=== PATIENT | female | born 1990 | race Caucasian/White ===

== ENCOUNTER 2016-09-21 14:36 | Emergency (ER) | payer MEDICAID, OTHER ==
[~2016-09-21] VITALS: Ht 167.6 cm; Wt 82.9 kg
[2016-09-21 14:47] VITALS: Ht 167.6 cm; Wt 82.9 kg
[2016-09-21] MEDS ORDERED: KETOROLAC 60 MG INJ IM STA (17:10)
[2016-09-21] MEDS ORDERED: KETOROLAC 30 MG INJ IV STA (17:13)
--- NOTE | 2016-09-21 19:15 | RADRPT ---
PROCEDURE: Chest x-ray CLINICAL INDICATION: Cough TECHNIQUE: Chest single view COMPARISON: None FINDINGS: The heart is normal in size. The pulmonary vessels are normal in caliber. The lungs are clear. Th e costophrenic angles are sharp. The visualized bony thorax is unremarkable. IMPRESSION: No acute cardiopulmonary disease. RPTAT: HH .Ricky Mckeon MD, Date Time Electronically viewed and signed by .Ricky Mckeon MD, MD on 09/21/2016 19:15 .W/
[2016-09-21] MEDS ORDERED: BENZ100C70 PO (21:07)
[2016-09-21] MEDS ORDERED: ACET500C5 PO (21:07)
[2016-09-21] MEDS ORDERED: IBUP-1542 PO (21:07)
[2016-09-21 21:11] VITALS: BP 121/72; PULSE 74; RESP 16
--- NOTE | 2016-09-22 00:32 | ERD ---
ER Documentation Chief Complaint Date/Time DATE: 09/22/16 TIME: 00:30 Chief Complaint PT HAS COUGH X 1 WEEK AFEBRILE SWOLLEN LEFT LYMPH NODES IN NECK HPI 25-year-old female with no significant past medical history presents to the ED complaining of a dry cough that became productive that started 1 week ago. States that she started to have a swollen lymph node that started earlier this morning on the left side of her neck region. States that she has been taking amoxicillin without relief of her symptoms. States that she has also been taking [id number] Vicks medication. Denies any chest pain, shortness of breath, wheezing, abdominal pain, nausea, vomiting, diarrhea, rashes. Reports that her son and daughter also sick with similar symptoms. ROS All systems reviewed and are negative except as per history of present illness. Medications Home Meds Active Scripts Benzonatate* (Tessalon Perle*) 100 Mg Capsule, 100 MG PO Q8H Y for COUGH, #20 CAP Prov:LIBAN BUCIO-C 09/21/16 Acetaminophen* (Tylophen*) 500 Mg Capsule, 1 CAP PO Q6H Y for PAIN AND OR ELEVATED TEMP, #20 CAP Prov:LIBAN BUCIO-C 09/21/16 Ibuprofen* (Motrin*) 600 Mg Tab, 600 MG PO Q6, #30 TAB Prov:LIBAN BUCIO-C 09/21/16 PMhx/Soc Medical and Surgical Hx: pt denies Medical Hx, pt denies Surgical Hx Hx Alcohol Use: No Hx Substance Use: No Hx Tobacco Use: No Smoking Status: Never smoker Physical Exam Vitals Vital Signs Date Time Temp Pulse Resp B/P Pulse Ox O2 Delivery O2 Flow Rate FiO2 09/21/16 21:11 74 16 121/72 98 Room Air 09/21/16 14:47 99.8 90 18 119/90 99 Physical Exam Const: [id number], well-nourished. In no acute distress. Head: Atraumatic, normocephalic Eyes: Normal Conjunctiva without injection. No purulent discharge. PERRLA. EOMI ENT: Normal external ear. Ear canal without erythema. Tympanic membrane pearly hunter without effusion or bulging. Nasal canal clear with normal turbinates. Moist oropharynx without tonsillar exudates. Non-erythematous pharynx. Uvula midline. No drooling. No trismus. Neck: No cervical midline tenderness. Full range of motion. No meningismus. Left anterior cervical lymphadenopathy. No JVD. Resp: Clear to auscultation bilaterally. No wheezing, rhonchi, rales, or crackles. No accessory muscle use. No retractions. Cardio: Regular rate and rhythm. No murmurs, rubs or gallops. Abd: Soft, non tender, non distended. Normal bowel sounds. No palpable masses. No rebound tenderness. No guarding. Negative McBurney's Point. Negative Potter's Sign. Skin: Normal skin turgor. No petechiae or rashes Back: No midline tenderness. No CVA tenderness. Ext: No cyanosis, or edema. Distal pulses intact bilaterally. Neur: Awake and alert. Normal gait. Normal coordination. Cranial Nerves II- VII intact. Normal finger to nose. Muscle strength 5/5. Sensation intact. Psych: Normal Mood and Affect Results 24 hrs Laboratory Tests Test 09/21/16 18:00 Monoscreen Negative Current Medications Medications (Trade) Dose Ordered Sig/Milton Route PRN Reason Start Time Stop Time Status Last Admin Dose Admin Ketorolac Tromethamine (Toradol) 60 mg ONCE STAT IM 09/21/16 17:10 09/21/16 17:11 Cancel Ketorolac Tromethamine (Toradol) 30 mg ONCE STAT IV 09/21/16 17:13 09/21/16 17:16 DC 09/21/16 18:00 Procedures/MDM This is a 25-year-old female patient with no significant past medical history presents the ED complaining of sore throat, cough, fatigue. Patient is afebrile nontoxic appearing. Patient has normal vital signs. Patient does have a swollen anterior versus posterior cervical lymphadenopathy. A Monospot, chest x-ray was ordered to further evaluate patient. Patient has a negative Monospot, could likely be too early to detect it at this time. Patient was given Ketoralac 30 mg IV with improvement of her symptoms. Patient verbalized that she feels better. PROCEDURE: Chest x-ray CLINICAL INDICATION: Cough TECHNIQUE: Chest single view COMPARISON: None FINDINGS: The heart is normal in size. The pulmonary vessels are normal in caliber. The lungs are clear. The costophrenic angles are sharp. The visualized bony thorax is unremarkable. IMPRESSION: No acute cardiopulmonary disease. Patient is afebrile and has normal vital signs. Patient's physical exam include lungs which were clear to auscultation and a normal pulse oximetry. No contact sports or activities that could cause blunt abdominal type of traumas were recommended to patient at this time in case it could be possible mono based on patient's symptoms. There is a low suspicion for pneumonia, pneumothorax, pulmonary embolism, epiglottitis, otitis media, otitis externa, viral/strep pharyngitis, sinusitis, peritonsillar abscess, mastoiditis, retropharyngeal abscess, meningitis, sepsis, acute abdomen or other emergent conditions. Fluids, rest, and symptomatic treatment are recommended for the management of patient's symptoms. Discharge medications: Tessalon Perles, Tylenol, Ibuprofen Patient was instructed to return to the ED for any new or worsening symptoms. They should otherwise follow up with the primary care provider within 1-2 days. The patient's questions were answered at the time of discharge. Patient understood and agreed with discharge management. Departure Diagnosis: Primary Impression: Cough Additional Impression: Lymphadenopathy, cervical Condition: Stable Patient Instructions: Mononucleosis, Uri, Viral, No Abx (Adult) Referrals: [facility] YOU HAVE RECEIVED A MEDICAL SCREENING EXAM AND THE RESULTS INDICATE THAT YOU DO NOT HAVE A CONDITION THAT REQUIRES URGENT TREATMENT IN THE EMERGENCY DEPARTMENT. FURTHER EVALUATION AND TREATMENT OF YOUR CONDITION CAN WAIT UNTIL YOU ARE SEEN IN YOUR DOCTORS OFFICE WITHIN THE NEXT 1-2 DAYS. IT IS YOUR RESPONSIBILITY TO MAKE AN APPOINTMENT FOR FOLOW-UP CARE. IF YOU HAVE A PRIMARY DOCTOR --you should call your primary doctor and schedule an appointment IF YOU DO NOT HAVE A PRIMARY DOCTOR YOU CAN CALL OUR PHYSICIAN REFERRAL HOTLINE AT IF YOU CAN NOT AFFORD TO SEE A PHYSICIAN YOU CAN CHOSE FROM THE FOLLOWING [facility] [address] [facility] [address] [facility] [address] [facility] [address] [facility] [address] [facility]. [facility] [address] [facility]. [facility] YOU HAVE RECEIVED A MEDICAL SCREENING EXAM AND THE RESULTS INDICATE THAT YOU DO NOT HAVE A CONDITION THAT REQUIRES URGENT TREATMENT IN THE EMERGENCY DEPARTMENT. FURTHER EVALUATION AND TREATMENT OF YOUR CONDITION CAN WAIT UNTIL YOU ARE SEEN IN YOUR DOCTORS OFFICE WITHIN THE NEXT 1-2 DAYS. IT IS YOUR RESPONSIBILITY TO MAKE AN APPOINTMENT FOR FOLOW-UP CARE. IF YOU HAVE A PRIMARY DOCTOR --you should call your primary doctor and schedule and appointment IF YOU DO NOT HAVE A PRIMARY DOCTOR YOU CAN CALL OUR PHYSICIAN REFERRAL HOTLINE AT . IF YOU CAN NOT AFFORD TO SEE A PHYSICIAN YOU CAN CHOSE FROM THE FOLLOWING [facility] INSTITUTIONS: [facility] [address] [place] [address] [facility] [address] [place], [place] [id number] [place] [address] [address] [place] [address] [facility] Additional Instructions: Call your primary care doctor TOMORROW for an appointment during the next 2-3 days.See the doctor sooner or return here if your condition worsens before your appointment time. LIBAN BUCIO PA-C Sep 22, 2016 00:32
== END 2016-09-21 21:21 | disposition home or self-care (01) ==
LOC: FTE 14:36
DX: R05 Cough (principal); R59.0 Localized enlarged lymph nodes
CPT/HCPCS: 71010; 86308; 96374; J1885; Z7502

== ENCOUNTER 2018-03-27 00:47 | Observation (INO) | END 2018-03-27 11:15 | disposition home or self-care (01) ==